=== PATIENT | male | born 1935 | race Caucasian/White ===

== ENCOUNTER 2016-05-01 10:09 | Day surgery (SDC) | payer MEDICARE ==
[~2016-05-01 10:09] MED LIST: LACTATED RINGERS 1,000 ML IV SCH
[2016-05-01] MEDS ORDERED: LACTATED RINGERS 1,000 ML ONE (10:16)
[2016-05-01] MEDS ORDERED: IV START KIT ONE (10:16)
[2016-05-01] MEDS ORDERED: MIDAZOLAM HCL 1 MG/ML 2ML VIAL ONE (10:49)
[2016-05-01] MEDS ORDERED: FENTANYL 5 ML ONE (10:49)
[2016-05-01] MEDS ORDERED: PROPOFOL 20 ML IV ONE (10:51)
[2016-05-01 15:02] LABS: HELICOBACTER PYLORII DETECTION POSITIVE (NEGATIVE)
--- NOTE | 2016-05-03 11:04 | SURGPATH ---
[facility] [address] [place] [address] Patient Name: MUNIR WYNN MR#: [id number] : 1935 Gender: M Specimen #: [id number] Collected: 05/01/2016 Received: 05/02/2016 Reported: 05/03/2016 Submitting Phys: MICA COVINGTON Copy To Phys: [facility] Clinical History / Pre-Operative Diagnosis: POSTPRANDIAL BLOATING; SATIETY; HEMOCCULT POSITIVE STOOL Specimen Source / Surgical Procedure Performed: #1-ANTRAL BIOPSY; #2-SIGMOID POLYP AT 30 CM; #3-RECTAL POLYPS AT 6 CM Interpretation: 1. GASTRIC ANTRUM, BIOPSY: - MILD CHRONIC ACTIVE GASTRITIS. - MICROORGANISMS MORPHOLOGICALLY CONSISTENT WITH HELICOBACTER PYLORI IDENTIFIED WITH ROUTINE STAINING. - NO EVIDENCE OF INTESTINAL METAPLASIA OR MALIGNANCY. 2. COLON, SIGMOID 30 CM, BIOPSY: - MULTIPLE FRAGMENTS OF TUBULAR ADENOMAS. - NO EVIDENCE OF MALIGNANCY. 3. RECTUM, 6 CM, BIOPSY: - ONE TUBULAR ADENOMA AND ONE TUBULOVILLOUS ADENOMA. - NO EVIDENCE OF MALIGNANCY. Electronically Signed Out Kayden Simmons M.D., Ph.D. Gross Description: #1 The specimen is received in a formalin filled container labeled with the patient's name and "antral biopsy". Three albrecht-zepeda biopsies are each 0.3 cm. Totally embedded in cassette #1. #2 The specimen is received in a formalin filled container labeled with the patient's name and "sigmoid polyp at 30 cm". Two polypoid zepeda biopsies are 0.4 x 0.4 x 0.3 cm and 0.5 x 0.5 x 0.3 cm. Totally embedded in cassette #2. #3 The specimen is received in a formalin filled container labeled with the patient's name and "two rectal polyps at 6 cm". Two polypoid zepeda biopsies are 0.5 x 0.4 x 0.3 cm and 0.5 x 0.5 x 0.3 cm. Totally embedded in cassette #3. Haily Miguel Microscopic Description: 1. Examination of multiple levels from gastric antrum biopsy shows multiple fragments of gastric mucosa with expansion of the lamina propria by a mixed inflammatory cell infiltrate consisting of lymphocytes, plasma cells, eosinophils, and occasional neutrophils. Microorganisms morphologically consistent with Helicobacter pylori are identified with routine staining. There is no evidence of intestinal metaplasia or malignancy. 2. Examination of multiple levels from the sigmoid colon biopsy at 30 cm shows multiple fragments of colonic mucosa with adenomatous changes within glands and tubules. There is no evidence of malignancy. 3. Examination of multiple levels from the rectum biopsy at 6 cm shows two fragments of colonic mucosa. One piece shows adenomatous changes within glands and tubules and the other piece shows adenomatous changes within glands, tubules, and blunted villi. There is no evidence of malignancy. 1: 17173 2: 21013 3: 63753 K29.00 B96.81 D12.5 D12.8
--- NOTE | 2016-05-03 12:37 | PROCNOTE ---
Ritchie Adams : 1935 [id number] DATE: 05/03/2016 This 80-year-old male patient within the practice of Dr. Rusty Alberto underwent upper endoscopy and colonoscopy on May 01 for hemoccult positive stools and abdominal bloating and satiety. The upper endoscopy demonstrated gastritis. Antral biopsies have confirmed the presence of H-pylori within the stomach. Biaxin and metronidazole both 500 mg twice daily for 10 days have been added to his prescription of omeprazole. Medical follow up will be by Dr. Rusty Alberto. JOB: [id number] CC: Dr. Rusty Alberto
== END 2016-05-01 13:07 | disposition home or self-care (01) ==
LOC: SDC 10:09
PROVIDERS: ATTEND Internal Medicine Gastroenterology
PROC: 0DB68ZX Excision of Stomach, Via Natural or Artificial Opening Endoscopic, Diagnostic (ICD-10-PCS; principal; 2016-05-01)
PROC: 0DBP8ZX Excision of Rectum, Via Natural or Artificial Opening Endoscopic, Diagnostic (ICD-10-PCS; 2016-05-01)
PROC: 0DBP8ZX Excision of Rectum, Via Natural or Artificial Opening Endoscopic, Diagnostic (ICD-10-PCS; 2016-05-01)
PROC: 0DBN8ZX Excision of Sigmoid Colon, Via Natural or Artificial Opening Endoscopic, Diagnostic (ICD-10-PCS; 2016-05-01)
DX: K29.50 Unspecified chronic gastritis without bleeding (principal); B96.81 Helicobacter pylori [H. pylori] as the cause of diseases classified elsewhere; K57.30 Diverticulosis of large intestine without perforation or abscess without bleeding; D12.5 Benign neoplasm of sigmoid colon; D12.7 Benign neoplasm of rectosigmoid junction; K29.80 Duodenitis without bleeding; Z80.0 Family history of malignant neoplasm of digestive organs; M19.90 Unspecified osteoarthritis, unspecified site; G25.0 Essential tremor; M10.9 Gout, unspecified; M31.6 Other giant cell arteritis; Z88.0 Allergy status to penicillin; Z79.82 Long term (current) use of aspirin
CPT/HCPCS: 43239; 45385; 87081; J3010; J2250; J7120

== ENCOUNTER 2016-07-18 17:00 | Observation (INO) | payer MEDICARE ==
[2016-07-18 17:45] LABS: ABSOLUTE NEUTROPHIL COUNT 5.4 K/mm3 (1.8-7.7); BASO % 0.5 % (0.2-1.0); EOS # 0.1 (0.0-0.5); EOS % 0.6 % (0.9-2.9); HEMATOCRIT 45.3 % (32.0-52.0); HEMOGLOBIN 14.8 gm/l (14.0-18.0); IMM NEUT # 0.3 K/mm3 (0-0.2); IMM NEUT% 3.5 % (0-1); LYMPH % 24.7 % (15-45); MEAN CORPUSCULAR HEMOGLOBIN 30.7 pg (27.0-31.0); MEAN CORPUSCULAR HGB CONC 32.7 g/dl (33.0-37.0); MEAN PLATELET VOLUME 9.6 fl (7.4-10.4); MONO # 0.4 (0.0-0.8); MONO % 4.4 % (4-12); NEUT % 66.3 % (43-75); PLATELET COUNT 115 K/mm3 (130-400); RED CELL DISTRIBUTION WIDTH 14.9 % (11.5-14.5)
[2016-07-18 18:19] LABS: INR 0.96; PARTIAL THROMBOPLASTIN TIME 19.8 SECONDS (24.5-33.0); PROTHROMBIN TIME 10.1 SECONDS (9.3-11.4)
[2016-07-18] MEDS ORDERED: ENOXAPARIN SODIUM 100 MG/ML SYRINGE SUB-Q ONE (18:32)
--- NOTE | 2016-07-18 18:45 | RAD ---
EXAMINATION: ELBOW -RIGHT 3-4 VIEWS CLINICAL INDICATION: Fall injury. Right elbow pain. Initial encounter. COMPARISON:None FINDINGS: No fracture or focal destruction is identified. Joint space relationships are maintained. There is periarticular osteophyte formation. There is severe soft tissue swelling adjacent to the olecranon process. Small soft tissue calcific lesions are also noted in this region as well. These appear well-corticated. No osteolysis is identified. No other soft tissue abnormality is seen. IMPRESSION: 1. No evidence of acute displaced fracture. 2. Osteoarthritis right elbow. 3. Marked soft tissue swelling of the olecranon. Findings may reflect olecranon bursitis or hematoma. Other entities that may need to be considered would include tophaceous gout.
[2016-07-18] MEDS ORDERED: OXYCODONE HCL 5 MG TABLET PO PRN (20:13)
[2016-07-18] MEDS ORDERED: SODIUM CHLORIDE 0.9% 100 ML IV PRN (20:15)
[2016-07-18] MEDS ORDERED: MENTHOL/CETYLPYRD 1 EACH LOZENGE PO PRN (20:15)
[2016-07-18] MEDS ORDERED: ACETAMINOPHEN 325 MG TABLET PO PRN (20:15)
[2016-07-18] MEDS ORDERED: BLISTEX LIPSTICK 1 EACH TP PRN (20:15)
[2016-07-18] MEDS: POLYETHYLENE GLYCOL 3350 17 G POWD.SUSP PO SCH (20:46)
[2016-07-18] MEDS: DOCUSATE SODIUM 100 MG CAPSULE PO SCH (20:47)
[2016-07-18] MEDS: PANTOPRAZOLE 40 MG TABLET DR PO SCH (20:47)
[2016-07-18] MEDS: PREDNISONE 20 MG TABLET PO SCH (20:48)
[2016-07-18] MEDS: ALLOPURINOL 100 MG TABLET PO SCH (20:48)
[2016-07-18] MEDS: MECLIZINE HCL 25 MG TABLET PO SCH (20:49)
[2016-07-18] MEDS: PROPRANOLOL HCL PO SCH (20:50)
[2016-07-18 23:00] VITALS: BMI 27.7
[2016-07-19 05:15] LABS: URINE BILIRUBIN NEGATIVE (NEGATIVE); URINE BLOOD NEGATIVE (NEGATIVE); URINE GLUCOSE (UA) 3+ (NEGATIVE); URINE LEUKOCYTE ESTERASE NEGATIVE (NEGATIVE); URINE NITRITE NEGATIVE (NEGATIVE); URINE PROTEIN NEGATIVE (NEGATIVE); URINE UROBILINOGEN NORMAL (0-1 mg/dl)
[2016-07-19 05:18] LABS: URINE APPEARANCE CLEAR; URINE COLOR YELLOW
[2016-07-19 05:19] LABS: URINE BACTERIA 0; URINE EPITHELIAL CELLS 0 /hpf; URINE RBC 0-2 /hpf; URINE WBC NEG /hpf
[2016-07-19] MEDS ORDERED: RIVAROXABAN 10 MG TABLET PO SCH (06:00)
[2016-07-19 06:25] LABS: HEMATOCRIT 43.8 % (32.0-52.0); HEMOGLOBIN 14.3 gm/l (14.0-18.0); MEAN CELL VOLUME 92.8 fl (80.0-94.0); MEAN CORPUSCULAR HEMOGLOBIN 30.3 pg (27.0-31.0); MEAN CORPUSCULAR HGB CONC 32.6 g/dl (33.0-37.0)
--- NOTE | 2016-07-19 07:45 | HP ---
Ritchie Adams [id number] : 1935 DATE OF ADMISSION: 07/18/2016 IDENTIFICATION: Mr. Adams is a 80-year-old followed by Dr. Rusty Alberto. CHIEF COMPLAINT: Left calf pain. HISTORY OF PRESENT ILLNESS: Mr. Adams is a rather vague historian, but his friends and his daughter helped fill in the history. He apparently has been having increasing swelling and pain in his right calf and ankle for at least a month. He did fall on Friday hitting his right elbow and he was seen today I think by neurosurgery and was referred for a venous duplex scan of the right lower extremity. He was found to have large deep venous thrombosis of the right calf and was then sent to the emergency department. He has had some intermittent coughing and occasional chest pains with exertion, but did not have any hypoxemia or strong reason to suspect pulmonary embolism. He was treated with enoxaparin in the emergency department and referred to the hospitalist service. After discussion with the patient and his daughter decision was made to treat with rivaroxaban for the deep venous thrombosis and he was placed in observation. REVIEW OF SYSTEMS: HEENT: He reports chronic blurry vision. Respiratory: Occasional dyspnea and cough worse with activity and generalized poor exercise tolerance. Cardiac: Occasional chest pains with exertion. No palpitations. Gastrointestinal: He has had some nausea today, no vomiting. Denies reflux. He does report a history of hematochezia, I am not sure if that has been worked up. Genitourinary: He reports some dysuria. Musculoskeletal: He has been having a lot of neck and low back pain with radiculopathy and was being evaluated for potential spinal surgery. He reports generalized loss of strength for the last couple of months. Constitutional: No fever, but he feels cold much of the time. PAST MEDICAL HISTORY: 1. Gout. 2. Osteoarthritis, multiple sites. 3. Benign essential tremor. 4. Temporal arteritis on chronic prednisone therapy. He has been on 40 mg of prednisone daily since last summer except for an episode in January when he quit taking it and was admitted to the hospital briefly. 5. Spinal stenosis and spondylosis with severe foraminal stenosis at C3. 6. Chronic vertigo. PAST SURGICAL HISTORY: 1. Temporal artery biopsy in July 2015 showing temporal arteritis. 2. Left inguinal hernia repair in 2008. 3. Right knee and right hip replacements 15 to 20 years ago. 4. Lumbar spinal surgery about 15 years ago. 5. Bilateral cataracts in February 2015. ALLERGIES: REPORTS PENICILLIN CAUSES A RASH. MEDICATIONS: 1. Prednisone 40 mg by mouth daily. 2. Propranolol SR 60 mg daily. 3. Allopurinol 300 mg daily. 4. Aspirin 81 mg daily. 5. Meclizine 25 mg prescribed three times daily as needed, but he only takes it once a day. 6. Omeprazole 40 mg by mouth twice daily. 7. MiraLax 17 gm by mouth daily. 8. Docusate sodium 200 mg by mouth daily. 9. Hydrocodone with acetaminophen 5/325, he takes one tablet he says about twice a week when the pain is unbearable. HABITS: He smoked briefly as a young man and quit in 1956, no alcohol or drug use. SOCIAL HISTORY: He is a . Lives with his daughter Whitley. He has three friends with him at the bedside this evening joking and carrying on, they provide his transportation to various medical appointments. He does have a POLST form with do not resuscitate status. FAMILY HISTORY: Brother had colon polyps. His mother had colon cancer. Diabetes runs in the family. PHYSICAL EXAMINATION: GENERAL: This is a jovial elderly gentleman. He does not appear in any acute distress. VITAL SIGNS: Temperature 98.8 degrees Fahrenheit, blood pressure 125/68, pulse 73, respiratory rate is 16, oxygen saturation 95% to 96% on room air. HEENT: Atraumatic. Pupils equal, round, and reactive. Extraocular muscles intact status post cataract surgery. Oropharynx is moist. Dentition in poor condition. CHEST: Clear to auscultation throughout. HEART: Regular with occasional premature beats. No murmur appreciated. ABDOMEN: Protuberant, soft, nontender, normal bowel tones. No organomegaly. EXTREMITIES: He does have 1+ pitting edema on the right and decreased dorsalis pedis pulse. Good pulse on the left. There is no cyanosis or clubbing. No erythema of the leg. Minimal tenderness and no palpable cords. NEUROLOGIC: He is alert and oriented though easily confused. There is obvious wasting of the intrinsic muscles of his hand bilaterally. LABORATORIES: CBC is normal except for platelet count low at 115. PT and PTT are normal. Chemistries are normal except for a glucose elevated at 188. DIAGNOSTICS: X-ray of the right elbow shows soft tissue swelling consistent with known right olecranon bursitis. Venous duplex scan of the right lower extremity shows extensive near occlusive right lower extremity deep venous thrombosis with a trickle of flow from the common femoral vein to the calf veins. ASSESSMENT: Mr. Adams is a 80-year-old with deep venous thrombosis of the right lower extremity. He has thrombocytopenia which has not previously been noted. He has underlying polymyalgia rheumatica and giant cell arteritis on chronic high dose prednisone therapy. PLAN: 1. Refer to observation. 2. For the deep venous thrombosis we will start rivaroxaban 15 mg by mouth twice daily with the plan to continue that dose for three weeks then change to 20 mg once daily. 3. Repeat CBC in the morning and check platelet count. Avoid further treatment with enoxaparin in the setting of thrombocytopenia. 4. Continue outpatient medications except replace omeprazole with pantoprazole, hold aspirin, and replace hydrocodone with oxycodone. 5. Physical and occupational therapy evaluation and treatment. 6. Do not resuscitate status. 7. He was informed that the current deep venous thrombosis and need for anticoagulation is likely to delay any spinal surgery that was under consideration. 8. 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 JOB: [id number]
[2016-07-19 08:03] VITALS: BP 126/76
[2016-07-19] MEDS: PREDNISONE 20 MG TABLET PO SCH (09:05)
[2016-07-19] MEDS: POLYETHYLENE GLYCOL 3350 17 G POWD.SUSP PO SCH (09:05)
[2016-07-19] MEDS: MECLIZINE HCL 25 MG TABLET PO SCH (09:05)
[2016-07-19] MEDS: DOCUSATE SODIUM 100 MG CAPSULE PO SCH (09:06)
[2016-07-19] MEDS: PANTOPRAZOLE 40 MG TABLET DR PO SCH (09:06)
[2016-07-19] MEDS: ALLOPURINOL 100 MG TABLET PO SCH (09:06)
[2016-07-19] MEDS: PROPRANOLOL HCL PO SCH (09:06)
--- NOTE | 2016-07-19 10:17 | PDOC43 ---
- Subjective Chief Complaint: DVT Alert and feels well today. Denies chest pain, dyspnea or leg pain. - Objective Vital Signs Temperature 97.6 F 07/19/16 08:00 Pulse Rate 82 07/19/16 08:00 Respiratory Rate 18 07/19/16 08:00 Blood Pressure 126/76 07/19/16 08:00 O2 Saturation by Pulse Oximetry 93 07/19/16 08:00 Oxygen Delivery Method Room Air Oxygen Flow Rate 0 Intake and Output 07/18/16 07/19/16 07/20/16 06:59 06:59 06:59 Intake Total 300 Output Total 400 Balance -100 General: Alert, Oriented x3, Cooperative, No Acute Distress HEENT: Mucous membr. moist/pink Lungs: Clear to Auscultation Bilaterally Cardiovascular: Regular Rate and Rhythm, No Murmur Abdomen: Soft, Normal Bowel Sounds, No Tenderness, No Masses Extremities: Edema (1-2+ on right only), Normal Pulses Neurological: Normal Speech Psych/Mental Status: Normal Mood Laboratory 07/19/16 06:10 07/19/16 06:10 MCHC 32.6 L RDW 15.0 H Current Medications: Current meds reviewed in EMR. - Problems: Assessment/Plan (1) DVT (deep venous thrombosis) Qualifiers: DVT location: lower extremity Affected thrombotic vein of extremity: femoral Laterality: right Chronicity: acute Qualifier Code: (I82.411 ) Acute embolism and thrombosis of right femoral vein Status: Acute Assessment/Plan: Stable, Rx rivaroxaban (2) Thrombocytopenia Status: AcuteAssessment/Plan: worse after enoxaparin dose 07/18, avoid heparin products. (3) Essential tremor Status: ChronicAssessment/Plan: stable (4) Gout Qualifiers: Gout site: unspecified site Gout etiology: unspecified cause Chronicity: chronic Presence of tophus: with tophus Qualifier Code: ( [id number]) Chronic gout, unspecified, with tophus (tophi) Status: Chronic Assessment/Plan: stable (5) Polymyalgia rheumatica Status: ChronicAssessment/Plan: Stable, consider decreasing prednisone, defer to outpatient MD (6) Spinal stenosis, multiple sites in spine Status: ChronicAssessment/Plan: Pain tx as necessary (7) Vertigo Status: ChronicAssessment/Plan: meclazine PRN (8) Hyperglycemia Status: ChronicAssessment/Plan: and glucosuria, has been worked up and has normal A1c. VTE Prophylaxis: rivaroxaban at treatment dose. Disposition: home if does well with therapies.
== END 2016-07-19 11:00 | disposition home or self-care (01) ==
LOC: ED 17:00 → MS 17:50
PROVIDERS: ADMIT Family Medicine; ATTEND Family Medicine
DX: I82.411 Acute embolism and thrombosis of right femoral vein (principal); D69.6 Thrombocytopenia, unspecified; G25.0 Essential tremor; M10.9 Gout, unspecified; M35.3 Polymyalgia rheumatica; M48.00 Spinal stenosis, site unspecified; R42 Dizziness and giddiness; R73.9 Hyperglycemia, unspecified; Z66 Do not resuscitate